=== PATIENT | female | born 1955 | race African-American/Black ===

== ENCOUNTER 2019-10-20 08:11 | Outpatient (CLI) | payer OTHER, SELFPAY ==
--- NOTE | ~2019-10-20 | MR_ITS ---
EXAMINATION: MR thoracic spine wo con EXAM DATE: 10/20/2019 09:22 INDICATION: Intervertebral disc degeneration thoracic area. Back pain since beginning of September 16 left- sided is worse. Feeling unstable, bent over by the end of the day. TECHNIQUE: Multi-sequential, multiplanar MR images of the thoracic spine were obtained without contra st. Sagittal T1, T2, T2 fat saturation, axial T2 weighted images reviewed. There is no prior study for comparison. FINDINGS: There is mild thoracic dextroscoliosis, moderate to severe thoracolumbar levoscoliosis. The re is mild diffuse thoracic disc disease and facet arthropathy. The vertebral bodies are aligned in t he AP dimension. Paraspinal soft tissue is unremarkable. The thoracic central canal and neural forame n are patent. The spinal cord signal intensity and intrinsic morphology is normal. IMPRESSION: Moderate to severe thoracolumbar levoscoliosis. Mild thoracic spondylosis. Reviewed, dictated and finalized at location A. IMPRESSION: Moderate to severe thoracolumbar levoscoliosis. Mild thoracic spon dylosis.
== END 2019-10-20 08:12 | disposition home or self-care (01) ==
PROVIDERS: PCP Internal Medicine; Visit Provider Clinical Nurse Specialist
DX: M51.34 Other intervertebral disc degeneration, thoracic region (principal); M47.894 Other spondylosis, thoracic region
CPT/HCPCS: 72146

== ENCOUNTER → 2022-04-03 15:39 | Outpatient (CLI) | payer MEDICARE, OTHER, SELFPAY ==
--- NOTE | ~2022-04-03 | MR_ITS ---
EXAMINATION: MR shoulder LT wo con DATE: 04/03/2022 16:42 INDICATION: Left shoulder pain. TECHNIQUE: Magnetic resonance imaging (MRI) of the left shoulder was performed without intravenous co ntrast. COMPARISON: None. FINDINGS: Coracoacromial arch: The acromion undersurface is curved in morphology (type II). There is remodeling of the undersurface of the acromion. There is severe acromioclavicular joint osteoarthritis. There is severe subacromial/ subdeltoid bursitis. Rotator cuff: There is a full-thickness tear involving supraspinatus and anterior infraspinatus tendons measuring 2 .1 cm anterior to posterior by 3.8 cm proximal to distal. Teres minor tendon is normal. There is edwin re subscapularis tendinopathy with articular sided partial tear. There is mild fatty atrophy of supra spinatus and subscapularis muscle bellies. Biceps tendon and glenoid labrum: There is a complete tear of proximal biceps tendon. There is widespread tearing of the glenoid labrum . Fluid: There is a large glenohumeral joint effusion. Bones/cartilage: There is superior subluxation of humeral head with respect to glenoid with narrowing of the subacromi al space and remodeling of the superior humeral head. There is severe glenohumeral joint osteoarthrit is including bone volume loss of glenoid. IMPRESSION: 1. Full-thickness rotator cuff tear with cuff arthropathy. 2. Advanced glenohumeral joint osteoarthritis. 3. Severe acromioclavicular joint osteoarthritis. 4. Complete tear of proximal biceps tendon. 5. Large glenohumeral joint effusion and severe subacromial/subdeltoid bursitis. Reviewed, dictated and finalized at location A. TRICAL ESTIMATOR IMPRESSION: 1. Full-thickness rotator cuff tear with cuff arthropathy. 2. Advanced glenohumeral joint osteoarthritis. 3. Severe acromioclavicular joint osteoarthritis. 4. Complete tear of proximal biceps tendon. 5. Large glenohumeral joint effusion and severe subacromial/subdeltoid bursitis .
== END ==
PROVIDERS: PCP Internal Medicine; Visit Provider Nurse Practitioner
DX: M75.122 Complete rotator cuff tear or rupture of left shoulder, not specified as traumatic (principal); M19.012 Primary osteoarthritis, left shoulder; S46.212A Strain of muscle, fascia and tendon of other parts of biceps, left arm, initial encounter; M25.412 Effusion, left shoulder; T14.90XA Injury, unspecified, initial encounter
CPT/HCPCS: 73221

== ENCOUNTER → 2022-07-13 07:57 | Outpatient (CLI) | payer MEDICARE, OTHER, SELFPAY ==
--- NOTE | ~2022-07-13 | MR_ITS ---
EXAMINATION: MR humerus RT wo/w con DATE: 07/13/2022 09:03 INDICATION: Bone lesion TECHNIQUE: Magnetic resonance imaging (MRI) of the right humerus was performed without and with 10 mL Multihance intravenous contrast. Sequences included axial, sagittal and coronal T1-weighted FSE and fluid sensitive FSE STIR, axial T1-weighted FS FSE and post contrast axial, sagittal and coronal T1- weighted FS FSE. COMPARISON: None. Reported prior outside radiographs on which the lesion was identified have not been submitted for comparison. FINDINGS: Bone alignment is normal. No fracture. Normal T1 hyperintense marrow fat signal throughout with no schuster spicious bone lesions or other evident pathologic marrow replacing process. Mild glenohumeral, modera te acromioclavicular and mild to moderate right elbow osteoarthritis. No joint effusions. Mild degene rative cystic changes along the greater tuberosity which can be seen in the setting of chronic rotato r cuff disease. Mild subacromial/subdeltoid bursitis. Musculature the right shoulder girdle and throu ghout the right upper arm appears normal. No pathologically enlarged lymphadenopathy at the right axi lla. IMPRESSION: 1. 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 No suspicious bone lesions identifie d. Recommend correlation with reported prior outside imaging Reviewed, dictated and finalized at location A. IMPRESSION: 1. 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 No suspicious bone lesions identified. Recommend correlation with reported prior outside imag ing
== END ==
PROVIDERS: PCP Internal Medicine; Visit Provider Nurse Practitioner
DX: M19.011 Primary osteoarthritis, right shoulder (principal); M19.021 Primary osteoarthritis, right elbow
CPT/HCPCS: 73220; A9577

== ENCOUNTER → 2023-04-23 10:30 | Outpatient (CLI) | payer MEDICARE, OTHER, SELFPAY ==
--- NOTE | ~2023-04-23 | CT_ITS ---
EXAMINATION: CT diagnostic chest wo con DATE: 04/23/2023 11:02 INDICATION: Lung nodule TECHNIQUE: Computed tomography (CT) of the chest was performed without intravenous contrast. The dose -length product (DLP) was 47.10 mGy-cm. Automated exposure control and iterative reconstruction techn ique were employed. COMPARISON: None FINDINGS: No suspicious pulmonary nodule is identified. There is mild atelectasis of the lower lobes, left greater than right. Cardiomegaly is noted. There are no pathologically enlarged thoracic lymph nodes. No pleural effusion or pneumothorax. There are changes of posterior fusion procedure from T3 t hrough the visualized lumbar spine. IMPRESSION: 1. No suspicious pulmonary nodule identified. Reviewed, dictated and finalized at location L. OWAVE RADIO TECHNICIAN
== END ==
PROVIDERS: PCP Nurse Practitioner; Visit Provider Nurse Practitioner
DX: R91.1 Solitary pulmonary nodule (principal)
CPT/HCPCS: 71250

== ENCOUNTER 2023-04-29 12:39 | Outpatient (CLI) | payer MEDICARE, OTHER, SELFPAY ==
[2023-04-29 18:57] LABS: Basophils Percent Auto 0.5 % (0.2-1.2); Eosinophils Absolute Auto 0.1 K/mm3 (0-0.3); Eosinophils Percent Auto 1.9 % (0-4.4); Hematocrit 38.5 % (37.0-47.0); Hemoglobin 11.8 g/dL (12.0-15.0); Immature Granulocyte Absolute 0.01 K/mm3 (0.00-0.031); Immature Granulocyte Percent A 0.2 % (0-0.5); Lymphocytes Absolute Auto 1.37 K/mm3 (0.9-3.2); Lymphocytes Percent Auto 32.5 % (18.3-44.2); Mean Corpuscular HGB Conc 30.6 g/dl (32-36); Mean Corpuscular Hemoglobin 28.8 pg (26-34); Mean Corpuscular Volume 93.9 fl (80-100); Mean Platelet Volume 10.8 fl (7.4-10.4); Monocytes Absolute Auto 0.5 K/mm3 (0.1-0.6); Monocytes Percent Auto 11.2 % (2.6-8.5); Neutrophils Absolute Auto 2.3 K/mm3 (1.3-6.7); Neutrophils Percent Auto 53.7 % (45.5-73.1); Platelet Count Result 250 k/mm3 (150-375); Red Cell Distribution Width 15.8 % (11.5-14.5); White Blood Count 4.2 K/mm3 (4.5-10.0)
[2023-04-29 19:40] LABS: Vitamin D 25 Hydroxy 40.1 ng/mL
[2023-04-29 20:44] LABS: Alanine Aminotransferase 16 U/L (6-35); Albumin Level 4.2 g/dL (3.5-5.1); Alkaline Phosphatase 104 U/L (38-126); Anion Gap 6 mmol/L (8-16); Aspartate Amino Transferase 38 U/L (14-36); Bilirubin,Total 0.3 mg/dL (0.2-1.3); Blood Urea Nitrogen 32 mg/dL (7-17); Calcium 9.7 mg/dL (8.4-10.2); Carbon Dioxide 34 mmol/L (22-30); Chloride 100 mmol/L (98-107); Estimated Glomerular Filt Rate > 60; Glucose 97 mg/dL (65-110); Potassium 3.8 mmol/L (3.4-5.0); Sodium 140 mmol/L (137-145)
== END 2023-04-29 12:40 | disposition home or self-care (01) ==
LOC: ANHGOSHLAB 12:41
PROVIDERS: PCP Nurse Practitioner; Visit Provider Nurse Practitioner
DX: E55.9 Vitamin D deficiency, unspecified (principal); Z13.29 Encounter for screening for other suspected endocrine disorder
CPT/HCPCS: 36415; 80053; 82306; 85025

== ENCOUNTER 2023-05-31 14:17 | Outpatient (CLI) | payer MEDICARE, OTHER, SELFPAY ==
--- NOTE | 2023-05-31 14:35 | ECHO_ITS ---
Patient Info Name: Sharyn Osorio Age: 67 years : 1955 Gender: Female Ht: 61 in Wt: 119 lbs BSA: 1.53 m2 HR: 50 bpm BP: 101 / 61 mmHg Heart Rhythm: Sinus Rhythm Technical Quality: Good Exam Date: 05/31/2023 2:37 PM Exam Location: Echo Lab Patient Status: Outpatient Admit Date: 05/31/2023 Staff Ordering Physician: Gena Marques NP [employer] Operator: Anai Garcia RDCS Attending Provider: Gena Marques NP Referring Physician: Shelli PYLE; Exam Type: CA echo doppler color flow Study Info Indications - cardiomegaly Complete two-dimensional, color flow and Doppler transthoracic echocardiogram is performed. Summary 1. Complete two-dimensional, color flow and Doppler transthoracic echocardiogram is performed. 2. Left ventricular chamber dimension is normal. 3. Left ventricular systolic function is normal, estimated at 60-65%. 4. The left ventricular diastolic function is abnormal. 5. E/e' 12 is mildly elevated. 6. Left atrial chamber dimension is severely enlarged. 7. Right atrial chamber dimension is moderately enlarged. 8. There is mild aortic valve sclerosis. 9. There is trace mitral valve regurgitation. 10. There is mild to moderate tricuspid valve regurgitation. 11. Moderate pulmonary hypertension, estimated pulmonary arterial systolic pressure is 52 mmHg. 12. There is trace pulmonic regurgitation. Left Ventricle E/e' 12 is mildly elevated. Left ventricular chamber dimension is normal. Left ventricular systolic function is normal, estimated at 60-65%. The left ventricular diastolic function is abnormal. Right Ventricle Right ventricular systolic function is normal and with normal TAPSE 2.6 cm. Right ventricular chamber dimension is normal. Left Atria Left atrial chamber dimension is severely enlarged. Right Atria Right atrial chamber dimension is moderately enlarged. Aortic Valve The aortic valve is trileaflet. There is mild aortic valve sclerosis. There is no aortic valve stenosis. There is no aortic valve regurgitation. Pulmonic Valve There is trace pulmonic regurgitation. Mitral Valve There is no mitral valve stenosis. There is trace mitral valve regurgitation. Tricuspid Valve There is mild to moderate tricuspid valve regurgitation. Moderate pulmonary hypertension, estimated pulmonary arterial systolic pressure is 52 mmHg. Pericardium/Pleural There is no pericardial effusion. Inferior Vena Cava Normal inferior vena cava with >50% collapse upon inspiration consistent with normal right atrial pressure, 5 mmHg. Aorta The aortic root size at the sinus of Valsalva is normal. Left Ventricular Outflow Tract Name Value Normal LVOT 2D LVOT Diameter 1.8 cm LVOT Doppler LVOT Peak Gradient 2 mmHg LVOT Mean Gradient 2 mmHg LVOT VTI 31 cm LVOT VTI/AV VTI Ratio 0.8 LVOT Stroke Volume 77 ml LVOT CO 3.7 l/min LVOT CI 2.4 l/min/m2 Pulmonic Valve Name
== END 2023-05-31 14:18 | disposition home or self-care (01) ==
LOC: ANHCARD 14:19
PROVIDERS: PCP Nurse Practitioner; Visit Provider Nurse Practitioner
DX: I08.3 Combined rheumatic disorders of mitral, aortic and tricuspid valves (principal)
CPT/HCPCS: 93306

== ENCOUNTER 2023-08-05 15:49 | Outpatient (CLI) | payer MEDICARE, OTHER, SELFPAY ==
--- NOTE | ~2023-08-05 | XR_ITS ---
EXAMINATION: XR shoulder LT min 2V DATE: 08/05/2023 16:20 INDICATION: Left shoulder pain TECHNIQUE: AP internally and externally rotated, AP oblique externally rotated and transscapular Y vi ews of the left shoulder were obtained. COMPARISON: Left shoulder MRI dated 04/03/2022 FINDINGS: Reverse left total shoulder arthroplasty in near-anatomic alignment. No periprosthetic lucency to sug gest loosening or infection. Again seen is widening of the left acromioclavicular joint space with er osions at the acromion and lateral head of the clavicle. No fractures. Thoracic posterior spinal fusi on with partially visualized bilateral vertical jessi and pedicle screw fixations beginning in the uppe r thoracic spine and extending into the lower thoracic spine. Visualized portion of the lungs are lenka ar. Soft tissues are unremarkable. IMPRESSION: Reverse left total shoulder arthroplasty with no acute osseous abnormality. 2. Widening of the left acromioclavicular joint with nonspecific erosive changes at the acromion and lateral head of the left clavicle. Reviewed, dictated and finalized at location A. IMPRESSION: Reverse left total shoulder arthroplasty with no acute osseous abnormality. 2. Widening of the left acromioclavicular joint with nonspecific erosive change s at the acromion and lateral head of the left clavicle.
== END 2023-08-05 15:50 ==
PROVIDERS: PCP Nurse Practitioner; Visit Provider Nurse Practitioner
DX: M25.812 Other specified joint disorders, left shoulder (principal); Z98.890 Other specified postprocedural states
CPT/HCPCS: 73030

== ENCOUNTER 2023-10-17 10:50 | Outpatient (CLI) | payer MEDICARE, OTHER, SELFPAY ==
[2023-10-17 19:33] LABS: Alanine Aminotransferase 16 U/L (6-35); Albumin Level 4.1 g/dL (3.5-5.1); Alkaline Phosphatase 120 U/L (38-126); Anion Gap 7 mmol/L (4-12); Aspartate Amino Transferase 34 U/L (14-36); Bilirubin,Total 0.3 mg/dL (0.2-1.3); Blood Urea Nitrogen 27 mg/dL (7-17); Calcium 8.7 mg/dL (8.4-10.2); Carbon Dioxide 32 mmol/L (22-30); Chloride 98 mmol/L (98-107); Estimated Glomerular Filt Rate > 60; Glucose 103 mg/dL (65-110); Potassium 3.7 mmol/L (3.4-5.0); Sodium 137 mmol/L (137-145)
== END 2023-10-17 10:51 | disposition home or self-care (01) ==
LOC: ANHGOSHLAB 10:52
PROVIDERS: PCP Nurse Practitioner; Visit Provider Nurse Practitioner
DX: D64.9 Anemia, unspecified (principal); D72.819 Decreased white blood cell count, unspecified
CPT/HCPCS: 36415; 80053

== ENCOUNTER 2024-01-16 07:47 | Outpatient (CLI) | payer MEDICARE, OTHER, SELFPAY | END 2024-01-17 07:31 | disposition home or self-care (01) | LOC: ANHCSM 07:48 | PROVIDERS: PCP Internal Medicine; Visit Provider Family Medicine | DX: G47.33 Obstructive sleep apnea (adult) (pediatric) (principal) | CPT/HCPCS: 95811 ==